=== PATIENT | male | born 1995 | race American Indian/Alaskan Native ===

== ENCOUNTER 2019-04-19 08:11 | Emergency (ER) | payer SELFPAY ==
--- NOTE | 2019-04-19 10:37 | Emergency Department Report ---
ED Chest Pain HPI - General Chief Complaint: Upper Respiratory Infection Stated Complaint: BREATHING PAIN IN L LUNG Time Seen by Provider: 04/19/19 09:55 Source: patient Mode of arrival: Ambulatory Limitations: No Limitations - History of Present Illness Initial Comments: 23-year-old male onset of chest pain 2 days. Patient states pain is worse with inspiration. Patient denies cough, denies fever, denies leg pain or swelling. MD Complaint: chest pain -: days(s) (3) Onset: during rest Pain Location: left chest Pain Radiation: none Severity: mild Quality: sharp Consistency: intermittent Improves With: nothing Worsens With: inspiration re: denies: nausea, vomting, diaphoresis, dyspnea Other Symptoms: denies: cough, fever, leg swelling - Related Data Previous Rx's Medication Instructions Recorded Last Taken Type Triamcinolone 0.5% [Kenalog 0.5% 1 applic TP QDAY #1 tube 01/13/15 Unknown Rx Cream] Ibuprofen [Motrin] 800 mg PO Q8H PRN #15 tablet 04/21/15 Unknown Rx Naproxen [Naprosyn] 500 mg PO BID #20 tablet 04/19/19 Unknown Rx Allergies Allergy/AdvReac Type Severity Reaction Status Date / Time No Known Allergies Allergy Verified 04/19/19 08:14 Heart Score - HEART Score History: Slightly suspicious EKG: Normal Age: < 45 Risk factors: No known risk factors Troponin: < normal limit HEART Score: 0 ED Review of Systems ROS: Stated complaint: BREATHING PAIN IN L LUNG Other details as noted in HPI Comment: All other systems reviewed and negative Constitutional: denies: chills, fever Respiratory: denies: cough, shortness of breath Cardiovascular: chest pain Musculoskeletal: other (DENIES LEG PAIN OR SWELLING) ED Past Medical Hx - Past Medical History Previous Medical History?: No Additional medical history: Lungs weren't fully developed at . - Social History Smoking Status: Never Smoker Substance Use Type: None - Medications Home Medications: Home Medications Medication Instructions Recorded Confirmed Last Taken Type Triamcinolone 0.5% [Kenalog 0.5% 1 applic TP QDAY #1 tube 01/13/15 Unknown Rx Cream] Ibuprofen [Motrin] 800 mg PO Q8H PRN #15 tablet 04/21/15 Unknown Rx Naproxen [Naprosyn] 500 mg PO BID #20 tablet 04/19/19 Unknown Rx ED Physical Exam - General Limitations: No Limitations General appearance: alert, in no apparent distress - Head Head exam: Present: atraumatic, normocephalic - Eye Eye exam: Present: normal appearance - ENT ENT exam: Present: mucous membranes moist - Neck Neck exam: Present: normal inspection - Respiratory Respiratory exam: Present: normal lung sounds bilaterally. Absent: respiratory distress - Cardiovascular Cardiovascular Exam: Present: regular rate, normal rhythm - GI/Abdominal GI/Abdominal exam: Absent: distended - Extremities Exam Extremities exam: Absent: pedal edema, calf tenderness - Neurological Exam Neurological exam: Present: alert, oriented X3, CN II-XII intact. Absent: motor sensory deficit - Psychiatric Psychiatric exam: Present: normal affect, normal mood - Skin Skin exam: Present: warm, dry, intact ED Course Vital Signs 04/19/19 08:15 Temperature 98.2 F Pulse Rate 77 Respiratory 18 Rate Blood Pressure 162/85 O2 Sat by Pulse 100 Oximetry ED Medical Decision Making - Lab Data Result diagrams: 04/19/19 10:56 04/19/19 10:56 - EKG Data -: EKG Interpreted by Tx EKG shows normal: sinus rhythm, axis, intervals, QRS complexes, ST-T waves Rate: normal - EKG Data Interpretation: no acute changes, other (inferior Q waves present) - Radiology Data Radiology results: report reviewed, image reviewed - Medical Decision Making - left pleuritic chest pain - CXR normal - D-dimer elevated, V/Q scan low probability for PE - no resp distress - O2 sats normal - recommend outpt f/u - return precautions given - Differential Diagnosis pleurisy, PTX, PE, pneumonia Critical care attestation.: If time is entered above; I have spent that time in minutes in the direct care of this critically ill patient, excluding procedure time. ED Disposition Clinical Impression: Pleurisy Disposition: - TO HOME OR SELFCARE Is pt being admited?: No Condition: Stable Instructions: Pleurisy (ED) Prescriptions: Naproxen [Naprosyn] 500 mg PO BID #20 tablet Referrals: TANK BELLO MD [Referring] - 3-5 Days [facility] [Provider Group] - 3-5 Days MOHINDER TOURE MD [Staff Physician] - 3-5 Days Time of Disposition: 13:38
[2019-04-19 11:16] LABS: Basophils % (Auto) 0.7 % (0.0-1.8); Eosinophils # (Auto) 0.1 K/mm3 (0.0-0.4); Eosinophils % (Auto) 1.9 % (0.0-4.3); Hematocrit 42.5 % (35.5-45.6); Hemoglobin 14.3 gm/dl (11.8-15.2); Lymphocytes # (Auto) 1.5 K/mm3 (1.2-5.4); Lymphocytes % (Auto) 25.1 % (13.4-35.0); Mean Corpuscular HGB Conc 34 % (32-34); Mean Corpuscular Volume 88 fl (84-94); Monocytes # (Auto) 0.5 K/mm3 (0.0-0.8); Monocytes % (Auto) 8.2 % (0.0-7.3); Platelet Count 289 K/mm3 (140-440); Red Blood Count 4.83 M/mm3 (3.65-5.03); Red Cell Distribution Width 13.8 % (13.2-15.2)
[2019-04-19 11:28] LABS: INR 0.97 (0.87-1.13)
[2019-04-19 11:29] LABS: Partial Thromboplastin Time 34.1 Sec. (24.2-36.6)
[2019-04-19 11:54] LABS: BUN/Creatinine Ratio 8; Blood Urea Nitrogen 8 mg/dL (9-20); Calcium 8.9 mg/dL (8.4-10.2); Hemolysis Index 7
--- NOTE | 2019-04-19 13:32 | Nuclear Medicine Report ---
LUNG SCAN, VENTILATION AND PERFUSION: Shortness of breath, elevated d-dimer. Inhalation of Xenon gas demonstrates a normal distribution of the activity throughout both lungs. The wash out phases show no focal retention of activity. After injection of Technetium 99m macroaggregated albumin gamma camera imaging of the lungs in multiple projections demonstrates normal pulmonary contours with a homogeneous distribution of activity. No focal areas of perfusion deficiency are identified. IMPRESSION: Normal study. ROUTINE CHEST, TWO VIEWS: PA and lateral views demonstrate the heart and mediastinal contour to be of normal size and shape. The lungs are clear and fully expanded and the soft tissues and bony structures are normal. IMPRESSION: Normal study.
[2019-04-19 13:50] VITALS: BP 115/77
== END 2019-04-19 13:50 | disposition home or self-care (01) ==
LOC: ED 08:11
DX: R09.1 Pleurisy (principal)
CPT/HCPCS: 36415; 71046; 78582; 80048; 85025; 85379; 85610; 85730; 93005; 93010; 99283; A9540; A9558